=== PATIENT | male | born 1995 | race Caucasian/White ===

== ENCOUNTER 2019-06-20 12:58 | Emergency (ER) | payer BC ==
--- NOTE | 2019-06-20 13:21 | ER Document Report ---
HPI - HPI Patient complains to provider of: needs antibiotic shot Time Seen by Provider: 06/20/19 13:09 Onset: This morning Pain Level: Denies Context: Patient states he is had a pruritic skin rash to the scrotum for the past 5 days. Patient went to an urgent care prior to arrival and was given a shot of antibiotics and an oral dose of medicine and was given a prescription for penicillin shot. Patient states that no pharmacy has the medication in stock and so he came here to receive the medication. Patient does report use of condoms with intercourse. Patient denies any dysuria or frequency. Associated Symptoms: Other - Rash to scrotum. denies: Fever, Nausea, Vomiting Exacerbated by: Denies Relieved by: Denies Similar symptoms previously: No Recently seen / treated by doctor: Yes - ROS ROS below otherwise negative: Yes Systems Reviewed and Negative: Yes All other systems reviewed and negative - CONSTITUTIONAL Constitutional: DENIES: Fever, Chills - NEURO Neurology: DENIES: Weakness - GASTROINTESTINAL Gastrointestinal: DENIES: Nausea - URINARY Urinary: DENIES: Dysuria, Urgency, Frequency - DERM Skin Color: Normal Past Medical History - General Information source: Patient - Social History Smoking Status: Never Smoker Frequency of alcohol use: Occasional Drug Abuse: None Occupation: [place] Family History: Reviewed & Not Pertinent Patient has suicidal ideation: No Patient has homicidal ideation: No - Medical History Medical History: Negative Surgical Hx: Negative Vertical Provider Document - CONSTITUTIONAL Agree With Documented VS: Yes Exam Limitations: No Limitations General Appearance: WD/WN, No Apparent Distress - HEENT HEENT: Atraumatic, Normocephalic - NECK Neck: Normal Inspection - RESPIRATORY Respiratory: Breath Sounds Normal, No Respiratory Distress - CARDIOVASCULAR Cardiovascular: Regular Rate, Regular Rhythm - REPRODUCTIVE Male Genitalia: Abnormal Inspection - Crusted rash to area of scrotum just below the penis, no obvious inguinal lymphadenopathy, no scrotal tenderness - MUSCULOSKELETAL/EXTREMETIES Musculoskeletal/Extremeties: MAEW - NEURO Level of Consciousness: Awake, Alert, Appropriate Motor/Sensory: No Motor Deficit - DERM Integumentary: Warm Course - Re-evaluation Re-evalutation: 06/20/19 13:51 Patient states that he was seen already at the urgent care and had gonorrhea and Chlamydia testing and received an antibiotic shot and oral pills. Patient states that he has oral prescription of antibiotics at home but that he only needs to get a penicillin injection. Patient states that he did attempt to draw blood in the office for testing but was unsuccessful. Patient does have an appointment with his doctor on Saturday for recheck. Patient states all he needs to see penicillin shot but is willing to have an RPR test performed. - Vital Signs Vital signs: Temp Pulse Resp BP Pulse Ox 98.9 F 86 16 112/73 99 06/20/19 13:02 06/20/19 13:02 06/20/19 13:02 06/20/19 13:02 06/20/19 13:02 Discharge - Discharge Clinical Impression: Scrotal rash Condition: Stable Disposition: HOME, SELF-CARE Instructions: Antibiotic Shot ([facility]) Additional Instructions: Return immediately for any new or worsening symptoms Followup with your primary care provider, call tomorrow to make a followup appointment Blood test is pending, we will call if you need any different treatment. [facility] - Follow up as needed
[2019-06-20] MEDS ORDERED: PENICILLIN G BENZATHINE 1.2 MILLION UNIT/2 ML DISP.SYRIN IM ONE (13:50)
[2019-06-20 14:20] VITALS: BP 113/79
== END 2019-06-20 14:26 | disposition home or self-care (01) ==
LOC: ER 12:58
DX: R21 Rash and other nonspecific skin eruption (principal)
CPT/HCPCS: 36415; 86592; J0561; 96372; 99283